=== PATIENT | male | born 1985 | race African-American/Black ===

== ENCOUNTER 2018-05-05 13:13 | Emergency (ER) | payer OTHER ==
[~2018-05-05] VITALS: Ht 180.3 cm; Wt 104.3 kg
[~2018-05-05 13:13] MED LIST: BACTRIM DS TAB1 EACH PO; FLEXERIL PO; IBUPROFEN 800800 M1 PO; NORCO 5-325 TA1 EACH PO; TRAMADOL 50 MG50 MG PO
[2018-05-05] MEDS ORDERED: ROBAXIN500 MG PO (13:17)
[2018-05-05] MEDS ORDERED: NAPROSYN500 MG PO (13:17)
[2018-05-05] MEDS ORDERED: MEDROLDOSEPACK PO (13:58)
[2018-05-05] MEDS ORDERED: VALIUM5 MG PO (13:58)
[2018-05-05 14:23] VITALS: BP 124/70
== END 2018-05-05 14:23 | disposition home or self-care (01) ==
LOC: ER 13:13
DX: S13.8XXA Sprain of joints and ligaments of other parts of neck, initial encounter (principal); F17.210 Nicotine dependence, cigarettes, uncomplicated; V89.2XXA Person injured in unspecified motor-vehicle accident, traffic, initial encounter; Y92.89 Other specified places as the place of occurrence of the external cause; Y93.89 Activity, other specified; Y99.8 Other external cause status